=== PATIENT | male | born 1990 | race Caucasian/White ===

== ENCOUNTER 2017-07-16 21:23 | Observation (INO) | payer SELFPAY ==
[2017-07-16] MEDS ORDERED: HYDROmorphONE/DILAUDID 1 MG/ML INJ IVP ONE (21:47)
[2017-07-16] MEDS ORDERED: ONDANSETRON 4 MG/2 ML VIAL IVP ONE (21:47)
[2017-07-16] MEDS ORDERED: NS 1,000 ML IV ONE ×2 (21:47→22:16)
--- NOTE | 2017-07-16 21:47 | EDPHY ---
H & P Stated Complaint: abd pain, N/V HPI/ROS: HPI CHIEF COMPLAINT: Abdominal pain, nausea, vomiting HISTORY OF PRESENT ILLNESS: This patient very pleasant 26-year-old male, otherwise healthy no significant medical history presents emergency room with right lower quadrant abdominal pain. Patient reports to me that around 6 o' clock this morning he woke up with abdominal pain was rather diffuse around his abdomen however over the day it is located in his right lower quadrant. Describes sharp stabbing. Nonradiating. Does not go to his back or testicle. Denies urinary symptoms. Denies fever. He does endorse nausea with vomiting. No diarrhea. He states the pain is constant. Past Medical History: Denies significant medical history Past Surgical History: [place] tooth surgery Social History: Smokes tobacco. Smokes marijuana. Occasional alcohol use. Family History: Noncontributory ROS REVIEW OF SYSTEMS: A comprehensive 10 point review of systems is otherwise negative aside from elements mentioned in the history of present illness. Exam Constitutional triage nursing summary reviewed, vital signs reviewed, awake/ alert. Eyes normal conjunctivae and sclera, EOMI, PERRLA. HENT normal inspection, atraumatic, moist mucus membranes, no epistaxis, neck supple/ no meningismus, no raccoon eyes. Respiratory clear to auscultation bilaterally, normal breath sounds, no respiratory distress, no wheezing. Cardiovascular rate normal, regular rhythm, no murmur, no edema, distal pulses normal. Gastrointestinal tender palpation right lower quadrant, no rebound, no guarding, normal bowel sounds, no distension, no pulsatile mass. Genitourinary no CVA tenderness. Musculoskeletal no midline vertebral tenderness, full range of motion, no calf swelling, no tenderness of extremities, no meningismus, good pulses, neurovascularly intact. Skin pink, warm, & dry, no rash, skin atraumatic. Neurologic awake, alert and oriented x 3, AAOx3, moves all 4 extremities equally, motor intact, sensory intact, CN II-XII intact, normal cerebellar, normal vision, normal speech. Psychiatric normal mood/affect. Heme/Lymph/Immune no lymphadenopathy. Differential diagnosis includes but is not limited to and in no particular order : Bowel obstruction, appendicitis, gallbladder disease, diverticulitis, colitis , enteritis, perforated viscus, gastritis, GERD, esophagitis, urinary tract infection, pyelonephritis, kidney stones Medical Decision Making: Plan for this patient IV established with IV fluid bolus, 0.5 mg Dilaudid for pain control, 4 mg Zofran for nausea, CT scan abdomen pelvis with IV contrast for acute appendicitis. Re-evaluation: 2229: The patient's last meal was 430 yesterday. Last had water around 730 this evening. Clinically he is tender in his right lower quadrant has leukocytosis of 21,000. Concerning for acute appendicitis. Patient made NPO in the emergency room. CT scan pending at this time. CT scan shows acute appendicitis. Updated patient about CT results. 2245: Consult General surgery at this time spoke with Dr. Alaniz. Will plan on seeing the patient admit to the hospital. For acute appendicitis. Source: Patient - Personal History Current Tetanus/Diphtheria Vaccine: No - Medical/Surgical History Hx Asthma: No Hx Chronic Respiratory Disease: No Hx Diabetes: No Hx Cardiac Disease: No Hx Renal Disease: No Hx Cirrhosis: No Hx Alcoholism: Yes Hx HIV/AIDS: No Hx Splenectomy or Spleen Trauma: No Other PMH: PMHx: denies. PSHx: wisdom tooth extraction - Social History Smoking Status: Current every day smoker Constitutional: Initial Vital Signs Temperature (C) 36.9 C 07/16/17 21:26 Heart Rate 93 07/16/17 21:26 Respiratory Rate 14 07/16/17 21:26 Blood Pressure 139/80 H 07/16/17 21:26 O2 Sat (%) 96 07/16/17 21:26 O2 Delivery Mode Room Air Allergies/Adverse Reactions: Penicillins Allergy (Verified 07/16/17 21:26) Home Medications: Medication Instructions Recorded NK [No Known Home Meds] 07/16/17 Medical Decision Making - Diagnostics Imaging Results: Imaging Impressions Abdomen CT 07/16/17 21:51 Impression: Acute appendicitis without evidence of perforation. Results called and discussed with Luis Alberto GARCIA, at 07/16/2017 22:36 General information for patients regarding this examination can be found at [email or web address]. If you have questions or comments about this report, please contact me at (hospital) or [phone] (cell). - Data Points Laboratory Results: Laboratory Results 07/16/17 21:42 07/16/17 21:42 07/16/17 07/16/17 21:42 21:42 WBC 21.01 10^3/uL H 10^3/uL (3.80-9.50) RBC 5.69 10^6/uL 10^6/uL (4.40-6.38) Hgb 16.6 g/dL g/dL (13.7-17.5) Hct 48.0 % % (40.0-51.0) MCV 84.4 fL fL (81.5-99.8) MCH 29.2 pg pg (27.9-34.1) MCHC 34.6 g/dL g/dL (32.4-36.7) RDW 12.4 % % (11.5-15.2) Plt Count 371 10^3/uL 10^3/uL (150-400) MPV 8.6 fL L fL (8.7-11.7) Neut % (Auto) 81.6 % H % (39.3-74.2) Lymph % (Auto) 10.7 % L % (15.0-45.0) Yates % (Auto) 7.0 % % (4.5-13.0) Eos % (Auto) 0.1 % L % (0.6-7.6) Baso % (Auto) 0.2 % L % (0.3-1.7) Nucleat RBC Rel Count 0.0 % % (0.0-0.2) Absolute Neuts (auto) 17.14 10^3/uL H 10^3/uL (1.70-6.50) Absolute Lymphs (auto) 2.25 10^3/uL 10^3/uL (1.00-3.00) Absolute Monos (auto) 1.47 10^3/uL H 10^3/uL (0.30-0.80) Absolute Eos (auto) 0.03 10^3/uL 10^3/uL (0.03-0.40) Absolute Basos (auto) 0.04 10^3/uL 10^3/uL (0.02-0.10) Absolute Nucleated RBC 0.00 10^3/uL 10^3/uL (0-0.01) Immature Gran % 0.4 % % (0.0-1.1) Immature Gran # 0.08 10^3/uL 10^3/uL (0.00-0.10) Sodium 135 mEq/L mEq/L (134-144) Potassium 4.0 mEq/L mEq/L (3.5-5.2) Chloride 101 mEq/L mEq/L (97-110) Carbon Dioxide 23 mEq/l mEq/l (22-31) Anion Gap 11 mEq/L mEq/L (8-16) BUN 12 mg/dL mg/dL (7-23) Creatinine 0.8 mg/dL mg/dL (0.7-1.3) Estimated GFR > 60 Glucose 105 mg/dL H mg/dL (70-100) Calcium 10.0 mg/dL mg/dL (8.5-10.4) Total Bilirubin 1.3 mg/dL mg/dL (0.1-1.4) Conjugated Bilirubin 0.2 mg/dL mg/dL (0.0-0.5) Unconjugated Bilirubin 1.1 mg/dL mg/dL (0.0-1.1) AST 21 IU/L IU/L (17-59) ALT 23 IU/L IU/L (21-72) Alkaline Phosphatase 65 IU/L IU/L (38-126) Total Protein 7.3 g/dL g/dL (6.3-8.2) Albumin 4.3 g/dL g/dL (3.5-5.0) Lipase 61 IU/L IU/L (23-300) Medications Given: Discontinued Medications Hydromorphone HCl (Dilaudid) 0.5 mg IVP EDNOW ONE Stop: 07/16/17 21:48 Last Admin: 07/16/17 21:56 Dose: 0.5 mg Sodium Chloride (Ns) 1,000 mls @ 0 mls/hr IV EDNOW ONE; Wide Open PRN Reason: Protocol Stop: 07/16/17 21:48 Last Admin: 07/16/17 21:53 Dose: 1,000 mls Sodium Chloride (Ns) 1,000 mls @ 0 mls/hr IV ONCE ONE PRN Reason: Wide Open Stop: 07/16/17 22:17 Last Admin: 07/16/17 22:46 Dose: 1,000 mls Ondansetron HCl (Zofran) 4 mg IVP EDNOW ONE Stop: 07/16/17 21:48 Last Admin: 07/16/17 21:54 Dose: 4 mg Departure - Departure Disposition: [facility] Acute Clinical Impression: Acute appendicitis Qualifiers: Acute appendicitis type: with localized peritonitis Qualified Code(s): K35.3 - Acute appendicitis with localized peritonitis Condition: Fair Referrals: NONE *PRIMARY CARE P,. [Primary Care Provider] - As per Instructions
[2017-07-16 21:52] LABS: % IMMATURE GRANULYOCYTES 0.4 % (0.0-1.1); ABSOLUTE IMMATURE GRANULOCYTES 0.08 10^3/uL (0.00-0.10); ADD DIFF? NO; ADD MORPH? NO; ADD SCAN? NO; ATYPICAL LYMPHOCYTE FLAG 0 (0-99); FRAGMENT RBC FLAG 0 (0-99); HEMOGLOBIN 16.6 g/dL (13.7-17.5); LEFT SHIFT FLG 0 (0-99); LIPEMIA HEMOLYSIS FLAG 90 (0-99); MEAN CELL HEMOGLOBIN 29.2 pg (27.9-34.1); MEAN CELL HEMOGLOBIN CONCENTR. 34.6 g/dL (32.4-36.7); MEAN CELL VOLUME 84.4 fL (81.5-99.8); MEAN PLATELET VOLUME 8.6 fL (8.7-11.7); PLATELET CLUMPS FLAG 0 (0-99); PLATELET COUNT 371 10^3/uL (150-400); RED BLOOD CELL COUNT 5.69 10^6/uL (4.40-6.38); RED CELL DISTRIBUTION WIDTH 12.4 % (11.5-15.2)
[2017-07-16] MEDS ORDERED: IOPAMIDOL (ISOVUE-300) 100 ML BTL ONE (22:01)
[2017-07-16 22:04] LABS: ALANINE AMINOTRANSFERASE 23 IU/L (21-72); ALBUMIN 4.3 g/dL (3.5-5.0); ALKALINE PHOSPHATASE 65 IU/L (38-126); ASPARTATE AMINOTRANSFERASE 21 IU/L (17-59); BILIRUBIN,TOTAL 1.3 mg/dL (0.1-1.4); BILIRUBIN-CONJUGATED 0.2 mg/dL (0.0-0.5); BILIRUBIN-UNCONJUGATED 1.1 mg/dL (0.0-1.1); CARBON DIOXIDE 23 mEq/l (22-31); CHLORIDE 101 mEq/L (97-110); CREATININE 0.8 mg/dL (0.7-1.3); GLOMERULAR FILTRATION RATE > 60; GLUCOSE 105 mg/dL (70-100); TOTAL PROTEIN 7.3 g/dL (6.3-8.2)
[2017-07-16] MEDS ORDERED: ERTAPENEM 1 GM in NS 100 ML IV ONE (22:40)
--- NOTE | 2017-07-16 23:09 | PDCONSULT ---
Facilities Flight Check Pilot Note: Luis Dejesus is a 26-year-old gentleman seen at the request of Dr. Darius Lowe Chief complaint: Abdominal pain associated with nausea and vomiting History of present illness: This is a 26-year-old patient who presents to the hospital with 18 hours of mild abdominal pain now or severe localized in the right lower quadrant. This was associated with nausea and vomiting without diarrhea. No subjective fevers or chills. No sick contacts. No previous episodes. Pain is now a 6 to 7/10. Nausea and vomiting now gone with medication. Past medical history: None Past surgical history: [place] teeth extraction Social history: Half pack per day smoker tobacco x3 years. Rare alcohol use. Daily marijuana use Family history: Significant for heart disease on the father's side but not in first-degree relatives Allergy: penicillin- Reaction severe nausea. Medications at home: None Review of systems significant for his nausea vomiting abdominal pain all others are reviewed and are negative. Temp Pulse Resp BP Pulse Ox 36.7 C 87 16 160/89 H 96 07/16/17 23:03 07/16/17 23:03 07/16/17 23:03 07/16/17 23:03 07/16/17 23:03 Alert oriented to person place and time Sclerae are anicteric Oropharynx slightly dry dentition intact No JVD thyromegaly Trachea midline no cervical adenopathy no supraclavicular adenopathy Regular rate and rhythm Clear to auscultation bilaterally no wheezes or rales Abdomen soft tender in the right lower quadrant with positive rebound and Rovsing sign no psoas sign No groin adenopathy 2+ over 2+ femoral dorsalis pedis and radial pulses All 4 extremities good muscle strength range of motion Skin no rashes poor turgor Neurologically intact nonfocal Behavior appropriate Imaging studies personally reviewed along with laboratory studies listed below 07/16/17 21:42 07/16/17 21:42 Total Bilirubin 1.3 mg/dL (0.1-1.4) 07/16/17 21:42 Conjugated Bilirubin 0.2 mg/dL (0.0-0.5) 07/16/17 21:42 Unconjugated Bilirubin 1.1 mg/dL (0.0-1.1) 07/16/17 21:42 AST 21 IU/L (17-59) 07/16/17 21:42 ALT 23 IU/L (21-72) 07/16/17 21:[address] 07/16/17 21:51 Impression: Acute appendicitis without evidence of perforation. Results called and discussed with Luis Alberto GARCIA, at 07/16/2017 22:36 General information for patients regarding this examination can be found at [email or web address]. If you have questions or comments about this report, please contact me at (hospital) or [phone] (cell). Impression/Plan: Acute appendicitis. Invanz has been given here in the emergency room for antibiotic coverage. IV hydration has already been started. Continue this over the next few hours. Laparoscopic appendectomy. The risks benefits and alternatives to the procedure have been outlined clearly with patient the risks include but are not limited to bleeding, infection, injury to surrounding structures that could require further intervention. Verbal understanding confirmed prior to written consent. Given the time tonight he will be kept overnight and observed till tomorrow morning.
[2017-07-16] MEDS ORDERED: BUPIVACAINE 0.5% 30 ML SDV ONE (23:25)
[2017-07-16] MEDS ORDERED: LIDOCAINE 1% 300 MG/30 ML SDV ONE (23:26)
[2017-07-16] MEDS ORDERED: MIDAZOLAM 2 MG/2 ML VIAL ONE (23:43)
[2017-07-16] MEDS ORDERED: MIDAZOLAM 2 MG/2 ML VIAL IVP ONE (23:46)
--- NOTE | 2017-07-16 23:46 | PDANEPAE ---
ANE History of Present Illness Acute appendicitis ANE Past Medical History - Pulmonary History Hx Oxygen in Use at Home: No - Endocrine History Hx Diabetes: No ANE Review of Systems Review of Systems: - Exercise capacity METS (RN): 4 METS ANE Patient History - Allergies Allergies/Adverse Reactions: Penicillins Allergy (Verified 07/16/17 21:26) - Home Medications Home medications: home medication list seen and reviewed Home Medications: NK [No Known Home Meds] 07/16/17 [Last Taken Unknown] - Smoking Hx Smoking Status: Current every day smoker ANE Labs/Vital Signs - Labs Result Diagrams: 07/16/17 21:42 07/16/17 21:42 - Vital Signs Blood Pressure: 160/89 Heart Rate: 87 Respiratory Rate: 16 O2 Sat (%): 96 Height: 175.26 cm Weight: 81.647 kg ANE Physical Exam - Airway Neck exam: FROM Mallampati Score: Class 2 Mouth exam: normal dental/mouth exam - Pulmonary Pulmonary: no respiratory distress - Cardiovascular Cardiovascular: regular rate and rhythym - ASA Status ASA Status: I, E ANE Anesthesia Plan Anesthesia Plan: general endotracheal anesthesia
[2017-07-16] MEDS ORDERED: fentaNYL 100 MCG/2 ML INJ ONE (23:52)
[2017-07-16] MEDS ORDERED: PROPOFOL 200 MG/20 ML VIAL ONE (23:52)
[2017-07-16] MEDS ORDERED: LIDOCAINE 2% 5 ML SDV ONE (23:52)
[2017-07-16] MEDS ORDERED: ROCURONIUM 50 MG/5 ML VIAL ONE (23:53)
[2017-07-16] MEDS ORDERED: GLYCOPYRROLATE 0.2 MG/1 ML VIAL ONE (23:53)
[2017-07-17] MEDS ORDERED: DEXAMETHASONE 4 MG/ML VIAL ONE (00:13)
[2017-07-17] MEDS ORDERED: ONDANSETRON 4 MG/2 ML VIAL ONE (00:13)
[2017-07-17] MEDS ORDERED: HYDROmorphONE/DILAUDID 1 MG/ML INJ IVP PRN (00:22)
[2017-07-17] MEDS ORDERED: ONDANSETRON 4 MG/2 ML VIAL IVP PRN ×2 (00:22→00:44)
[2017-07-17] MEDS ORDERED: PROMETHAZINE HCL 25 MG/ML INJ IVP PRN (00:22)
[2017-07-17] MEDS ORDERED: NALOXONE HCL 0.4 MG/ML INJ IVP PRN (00:22)
[2017-07-17] MEDS ORDERED: fentaNYL 100 MCG/2 ML INJ IVP PRN (00:22)
[2017-07-17] MEDS ORDERED: SUGAMMADEX SODIUM 200 MG/2 ML VIAL IVP ONE (00:27)
[2017-07-17] MEDS ORDERED: KETOROLAC 30 MG/1 ML SDV ONE (00:30)
[2017-07-17] MEDS ORDERED: ZOLPIDEM TARTRATE 5 MG TAB PO PRN (00:44)
--- NOTE | 2017-07-17 00:44 | POSTOPPROG ---
Post Op Note Date of Operation: 07/17/17 Surgeon: Dario Alaniz Steel Box Toe Inserter: caty Anesthesiologist: Awilda Lopes Anesthesia: GET(General Endotracheal) Pre-op Diagnosis: acute appendicitis Post-op Diagnosis: same Procedure: Lap Appy Findings: acute inflammation of appendix Inf/Abcess present in the surg proc area at time of surgery?: Yes Depth: Organ Space EBL: Minimal Specimen(s): appendix to permanent pathology
--- NOTE | 2017-07-17 00:54 | POSTANESTH ---
Post Anesthetic Evaluation Cardiovascular Status: Similar to Pre-Op Cond Respiratory Status: Similar to Pre-op Cond. Level of Consciousness/Mental Status: Can Participate in Eval Pain Control: Adequate, Prn Tx Ordered Nausea/Vomiting Control: Adequate, Prn Tx Ordered Complications Possibly Related to Anesthesia: None Noted
[2017-07-17] MEDS ORDERED: LR 1,000 ML IV SCH (01:00)
[2017-07-17 05:24] VITALS: RESP 16
[2017-07-17 05:52] LABS: COLOR YELLOW; LEUKOCYTE ESTERASE,URINE NEGATIVE (NEGATIVE); NITRITE,URINE NEGATIVE (NEGATIVE)
[2017-07-17] MEDS ORDERED: KETOROLAC 15 MG/1 ML SDV IVP SCH (06:00)
[2017-07-17 07:25] VITALS: BP 102/59; PULSE 83; TEMP 97.7; O2SAT 96
[2017-07-17] MEDS ORDERED: oxyCODONE IR 5 MG TAB PO PRN (08:39)
--- NOTE | 2017-07-17 09:36 | GOP ---
[f rep st] OPERATIVE REPORT DATE OF OPERATION: SURGEON: Dario Alaniz MD ANESTHESIA: General endotracheal anesthesia was used. ANESTHESIOLOGIST: Dr. Lopes. PREOPERATIVE DIAGNOSIS: Acute appendicitis. POSTOPERATIVE DIAGNOSIS: Acute appendicitis. PROCEDURE PERFORMED: Laparoscopic appendectomy. FINDINGS: Acute appendicitis. SPECIMENS: Pending from Pathology. INDICATIONS: This is a 26-year-old gentleman who presents with acute appendicitis DESCRIPTION OF PROCEDURE: The patient was brought into the operating room. After induction of endot david anesthesia in a supine position, his abdomen was prepped with chlorhexidine and draped steril glen. Time-out procedure was then performed according to institutional standards. Local anesthetic w as infused in skin and subcutaneous tissue at the trocar site. Open supraumbilical trocar placement was done in the standard fashion. A 10 mm port was then placed in that region. Two lower ports in t he lower midline are used; 5 mm ports under direct visualization. The abdomen insufflated to 15 TOR, was inspected. There was suppuration and suppurative fluid around the appendix, but no other proble ms. The appendix was brought in the field of dissection. A window was created between the mesoappen siva and the appendix. Staple division of the appendix in the mesentery was done. Clips were used to reinforce the mesenteric staple line. The appendix was placed into a bag, the area was ensured to b e hemostatic, and the abdomen was exited without difficulty. The abdomen was deflated, the fascia wa s closed using 0 Vicryl above the umbilicus, and all 3 ports were closed at the skin level using 4-0 Monocryl. Dermabond was applied. The patient awakened, extubated, taken to recovery in stable condi tion. No immediate complications. COMPLICATIONS: There were no complications. /[id number]/MODL
--- NOTE | 2017-07-17 17:38 | ASDISCHSUM ---
Discharge Information Plan Status:Home with No Needs Medically Cleared to Leave: Discharge Date:07/17/2017 10:57 AM CM D/C Disposition:Home, Routine, Self-Care ADT D/C Disposition:Home, Routine, Self-Care Projected Discharge Date:07/17/2017 10:57 AM Transportation at D/C: Discharge Delay Reason: Follow-Up Date:07/17/2017 10:57 AM Discharge Slot: Final Diagnosis: Placement Information Patient Contact Information Contact Name:ROSITA Relationship:Friend Address: Work Phone: City: [facility] Phone: State/Zip Code: Email: Financial Information Financial Class:Self-Pay Primary Plan Desc:SELF PAY Primary Plan Number: Secondary Plan Desc: Secondary Plan Number: Assessment Information Intervention Information
[2017-07-17 18:55] LABS: SODIUM 143 mEq/L (134-144)
[2017-07-17 18:56] LABS: ANION GAP 19 mEq/L (8-16)
== END 2017-07-17 10:57 | disposition home or self-care (01) ==
LOC: INTOOBSV 22:45 → F3E 07-17 01:15
PROVIDERS: ADMIT Surgery; ATTEND Surgery
PROC: 0DTJ4ZZ Resection of Appendix, Percutaneous Endoscopic Approach (ICD-10-PCS; principal; 2017-07-16 23:30)
DX: K35.80 Unspecified acute appendicitis (principal); F17.210 Nicotine dependence, cigarettes, uncomplicated; F12.90 Cannabis use, unspecified, uncomplicated
CPT/HCPCS: 96365; G0378; J1100; J1170; J1335; J1885; J2250; J2405; J2704; J3010; Q9967